=== PATIENT | male | born 1965 | race Caucasian/White ===

== ENCOUNTER 2018-06-29 09:44 | Day surgery (SDC) | payer BC, SELFPAY ==
[2018-06-13 09:47] VITALS: BMI 26.3
[2018-06-29] VITALS (10 sets, daily range): BP systolic 104–137; BP diastolic 67–88; PULSE 44–62; RESP 12–18; TEMP 36.1–36.5; O2SAT 95–100; BMI 26.3
--- NOTE | 2018-06-29 10:22 | PM.HP.1 ---
History of Present Illness Date Patient Seen: 06/29/18 Time Patient Seen: 10:23 Chief complaint: EUA w/hemorrhoide banding [id number] Narrative: Kobi is a pleasant and very healthy 53-year-old gentleman who presents today for examination under anesthesia and hemorrhoid banding. He has been struggling with grade 3 hemorrhoids for the past several years. We had a long discussion in the office and he has accepted this as a 1st step in dealing with this problem. Patient History Medical History Fusion of spine of cervical region (Acute) Hemorrhoid (Acute) HTN (hypertension) (Chronic) Spinal stenosis (Chronic) Surgical History History of colonoscopy (Acute) Family & Social History Family History: Reviewed 06/29/18 by Mila Benoit MD Social History: household members spouse Tobacco & Substance use: Smoking Status Never smoker alcohol intake current Substance Use Type does not use Meds Home Medications Medication Instructions Recorded Confirmed Type atenolol 100 mg tablet 100 mg PO DAILY 05/03/18 06/13/18 History losartan 100 mg tablet 200 mg PO DAILY tab 05/03/18 06/13/18 History Allergies Allergy/AdvReac Type Severity Reaction Status Date / Time cefaclor Allergy Verified 06/13/18 09:48 Penicillins Allergy Verified 06/13/18 09:48 Review of Systems Review of Systems All systems reviewed & are unremarkable except as noted in HPI and below Exam Narrative Exam Narrative: Very pleasant gentleman in no distress HEENT: Normocephalic and atraumatic, pupils equal round reactive to light accommodation with anicteric sclera Lungs: Clear to auscultation bilaterally Heart: Regular rate and rhythm without murmur rub or gallop Abdomen: Soft, nontender, active bowel sounds Extremities: Warm and well perfused Assessment & Plan Plan: Assessment/Plan Narrative: Very pleasant 53-year-old gentleman with grade 3 internal hemorrhoids that are very troublesome for him. We discussed the risks and benefits of examination under anesthesia with hemorrhoid banding in the patient expressed desire to complete the procedure today.
[2018-06-29] MEDS: GLYCOPYRROLATE 1 MG/5 ML MDV 0.2 MG IV (10:27)
[2018-06-29] MEDS: LACTATED RINGERS 1,000 ML 42 ML IV (10:27)
--- NOTE | 2018-06-29 10:36 | SUR.PREOP ---
STATES HE HAS POSITIONING ISSUES WITH HIS UPPER ARMS AND SHOULDERS, STATES HIS ARMS GO NUMB AND FALL ASLEEP OFTEN WHEN HE SLEEPS, STATES HE BELIEVES THIS IS FROM HIS NECK INJURY .
[2018-06-29] MEDS: levoFLOXacin 500 MG/100 ML PIGGYBACK 100 MG IV (10:45)
--- NOTE | 2018-06-29 11:04 | SUR.OPER ---
Lithotomy on padded OR bed, head on pillow, arms secured on padded arm boards at <90 degrees abduction. Legs secured in padded yellow fins stirrups.
[2018-06-29] MEDS: BUPIVACAINE 0.5% (PF) VIAL 30 ML INJ (11:26)
[2018-06-29] MEDS: LIDOCAINE 1% W/EPI INJ 20 ML INJ (11:27)
--- NOTE | 2018-06-29 11:29 | PM.OP.1 ---
Operative Date/Time/Diagnoses Date of procedure: 06/29/18 Time of procedure: 11:29 Pre-op diagnosis: Grade 3-4 internal hemorrhoids Post-op diagnosis: same Procedure & Clinicians Procedure: Examination under anesthesia with banding of internal hemorrhoids. Same procedure as scheduled: Yes Indications: Prolapsing and painful internal hemorrhoids Surgeon: Mila Benoit Click Yes if Unassisted: Yes Anesthesia Type: General (Yoel) Operative Notes Findings: A very large bifid complex of internal hemorrhoids at the 7 o'clock Radian in lithotomy position. Closure Type: not applicable Specimen(s): none sent Implants & Drains: Two sets of hemorrhoid bands Estimated Blood Loss (mL): 2 Procedure in detail: After obtaining informed consent, the patient brought to the operating room and placed in the supine position on the operating table. Following successful induction of general endotracheal anesthesia, appropriate padding of all bony prominences, and placement of appropriate monitors, the legs were placed in José Miguel stirrups and the perianal region prepped and draped in the standard surgical fashion. A time-out was held per [facility] protocol. A small anoscope was placed in the anal canal to better visualize the offending hemorrhoids. We noted a large bifid complex at the 7 o'clock Radian. This was grasped with the Allis forceps and 2 hemorrhoid bands deployed at the more lateral aspect of this complex. We were careful to ensure that the bands were deployed superior to the dentate line. The 2nd portion of this complex was treated in the same manner as the 1st. The entire complex was then placed back into the anal canal. A pack of Gelfoam and dibucaine ointment was applied to the anal canal. All sponge, needle, and instrument counts were correct at conclusion of the case. Patient was allowed to wake from anesthesia without difficulty and taken to the postanesthesia care unit in good condition. Complications: none Condition: stable Disposition: PACU Plan for aftercare: 1. Discharge to home 2. Follow up with me in my office in 2 weeks
[2018-06-29] MEDS: OXYCODONE/ACETAMINOPHEN 5/325 TABLET 1 TAB PO ×2 (11:41→12:08)
== END 2018-06-29 12:30 | disposition home or self-care (01) ==
PROVIDERS: PCP Family Medicine Geriatric Medicine; Visit Provider Surgery
PROC: (CPT 45990; principal; 2018-06-29 10:30)
DX: K64.3 Fourth degree hemorrhoids (principal); I10 Essential (primary) hypertension
CPT/HCPCS: 46221; J1100; J1956; J2250; J2405; J2704; J3010